=== PATIENT | male | born 2000 | race Caucasian/White ===

== ENCOUNTER 2023-12-03 19:22 | Emergency (ER) | payer OTHER ==
[~2023-12-03] VITALS: Ht 185.4 cm; Wt 72.7 kg
[~2023-12-03 19:22] MED LIST: MOBIC 7.5MG7.5 MG PO
[2023-12-03 19:53] VITALS: TEMP 98.2
[2023-12-03] MEDS ORDERED: fentaNYL 50 MCG/ML 2 ML VIAL IV ONE ×2 (20:30→22:00)
[2023-12-03] MEDS ORDERED: Ketorolac 30 MG/ML VIAL IV ONE (20:30)
[2023-12-03] MEDS ORDERED: NS 1,000 ML IV ONE ×2 (20:30→22:00)
[2023-12-03 21:06] LABS: BASO # 0.1 K/mm3 (0.0-0.2); BASO % 0.8 % (0.0-2.0); EOS # 0.1 K/mm3 (0.0-0.7); EOS % 1.4 % (0.0-4.0); GRAN # 4.4 K/mm3 (1.4-6.5); GRAN % 47.7 % (42.2-75.2); HEMATOCRIT 44.4 % (42.0-52.0); HEMOGLOBIN 15.2 g/dl (13.5-18.0); LYMPH # 4.1 K/mm3 (1.2-3.4); LYMPH % 44.9 % (20.0-51.0); MEAN CELL VOLUME 86 fl (80.0-100.0); MEAN CORPUSCULAR HEMOGLOBIN 30 pg (27-31); MEAN CORPUSCULAR HGB CONC 34 g/dl (33.0-37.0); MEAN PLATELET VOLUME 9.6 fl (7.4-10.4); MONO # 0.5 K/mm3 (0.1-0.6); PLATELET COUNT 360 K/mm3 (130-400); RED BLOOD COUNT 5.14 M/mm3 (4.20-5.60); REDCELL DISTRIBUTION WIDTH-CV 12.8 % (11.5-14.5)
[2023-12-03 21:30] LABS: ALBUMIN 4.6 gm/dL (3.5-5.0); BILIRUBIN,TOTAL 0.7 mg/dL (0.2-1.2); C-REACTIVE PROTEIN 0.06 mg/dL (0.00-0.50); CALCIUM 9.9 mg/dL (8.4-10.2); CREATININE, serum 0.87 mg/dL (0.72-1.25); POTASSIUM 3.7 mmol/L (3.5-4.5); TOTAL PROTEIN 7.7 gm/dL (6.2-8.1)
[2023-12-03] MEDS ORDERED: NS 50 ML IV SCH (21:59)
[2023-12-03] MEDS ORDERED: Iohexol 300 - 100 ML VIAL IV ONE (21:59)
[2023-12-03] MEDS ORDERED: NORCO 325 MG-51 TAB PO (22:41)
[2023-12-03 22:59] LABS: URINE APPEARANCE CLEAR (CLEAR/HAZY); URINE BLOOD NEGATIVE (NEGATIVE); URINE COLOR YELLOW (YELLOW); URINE GLUCOSE NEGATIVE (NEGATIVE); URINE KETONE 1+ (NEGATIVE); URINE NITRATE NEGATIVE (NEGATIVE); URINE PROTEIN(semi-quant) NEGATIVE (NEGATIVE); URINE UROBILINOGEN 0.2 E.U/dL (0.2-1.0)
[2023-12-03 23:34] LABS: COLLECTION METHOD CLEAN CATCH
[2023-12-04 00:04] VITALS: BP 128/77; PULSE 70
== END 2023-12-04 00:05 | disposition home or self-care (01) ==
LOC: COL.ER 19:22
PROVIDERS: Emergency Medicine
DX: R10.31 Right lower quadrant pain (principal); M25.551 Pain in right hip; Z87.438 Personal history of other diseases of male genital organs; Z98.890 Other specified postprocedural states
CPT/HCPCS: J1885; J3010; J7030; Q9967

== ENCOUNTER 2024-06-16 14:24 | Emergency (ER) | payer OTHER ==
[~2024-06-16] VITALS: Ht 185.4 cm; Wt 72.7 kg
[~2024-06-16 14:24] MED LIST changes: +NORCO 325 MG-51 TAB PO; +ZOFRAN ODT4 MG PO
[2024-06-16 14:34] VITALS: TEMP 98.2
[2024-06-16 15:41] VITALS: BP 128/74; PULSE 72
== END 2024-06-16 15:41 | disposition home or self-care (01) ==
LOC: COL.ER 14:24
DX: S61.012A Laceration without foreign body of left thumb without damage to nail, initial encounter (principal); W26.8XXA Contact with other sharp object(s), not elsewhere classified, initial encounter; Y93.89 Activity, other specified